=== PATIENT | female | born 1945 | race Caucasian/White ===

== ENCOUNTER → 2016-08-24 | Outpatient (CLI) | payer MEDICARE, BC | END | disposition home or self-care (01) | LOC: LABWHC1 10:18 | PROVIDERS: ATTEND Dermatology MOHS-Micrographic Surgery | DX: L64.8 Other androgenic alopecia (principal) | CPT/HCPCS: 36415; 84132 ==

== ENCOUNTER → 2016-11-22 | Outpatient (CLI) | payer MEDICARE, BC ==
--- NOTE | 2016-11-22 14:40 | MM ---
Reason for exam: screening (asymptomatic). Last mammogram was performed 6 months ago. History: Patient is postmenopausal. Family history of breast cancer in mother at age 65. Benign MG stereo VAD BX LT of the left breast, December 04, 2015. Benign excisional biopsy of the left breast, 1989. Physical Findings: A clinical breast exam by your physician is recommended on an annual basis and results should be correlated with mammographic findings. MG 3D Screening Mammo W/Cad Bilateral CC and MLO view(s) were taken. Prior study comparison: September 08, 2015, bilateral MG 3d screening mammo w/cad. The breast tissue is heterogeneously dense. This may lower the sensitivity of mammography. Finding: There are typically benign vascular calcifications in both breasts. Increasing group of indeterminate calcifications in the right breast near nodule. Previous mammotome biopsy in the in the left breast. There is a chronic nodularity in the right breast ASSESSMENT: Incomplete: need additional imaging evaluation, BI-RAD 0 RECOMMENDATION: Special view mammogram of the right breast. [facility] will attempt to contact patient to return for supplemental views.
--- NOTE | 2016-11-22 21:03 | WWHP ---
DATE OF DICTATION: 11/22/2016 CHIEF COMPLAINT: The patient is here for her routine gynecologic exam and mammogram. HISTORY OF PRESENT ILLNESS: This is a 71-year-old G2, P2 with an LMP of 1998. The patient is without gynecologic complaints. She denies any problems from her known rectocele. She did have a breast biopsy last year and had a follow-up mammogram on the left side in 05/29. PAST MEDICAL HISTORY: 1. Osteopenia, status post more than 5 years of Fosamax in the past. 2. Sinus problems. 3. Hypothyroidism following radioactive iodine treatment. 4. Elevated cholesterol. 5. TIA in the past. MEDICATIONS: 1. Singulair 10 mg daily p.r.n. 2. Hanh generic 180 mg daily p.r.n. 3. Synthroid 112 mcg daily. 4. Spironolactone 25 mg daily. 5. Crestor 5 mg every other day. 6. Aspirin 325 mg daily. ALLERGIES: NO KNOWN DRUG ALLERGIES. PAST SURGICAL HISTORY: Colonoscopy 2016 in addition to the surgeries listed in the 2016 H&P. 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 SOCIAL HISTORY: She denies tobacco and drug use and has about 2 alcoholic drinks per month. She has been since 1964 and is retired. She goes to [place] every winter. REVIEW OF SYSTEMS: She has lost about 7 pounds over the last year. She denies respiratory, cardiac or GI problems. She denies maltreatment and falling. : She has occasional slight urinary leakage and does wear a pad because of this. This is not a very big problem for her. PHYSICAL EXAM: Blood pressure 123/67. Height 5 feet 2 inches. Weight 148 pounds. Temperature 98.0, pulse 90. This is a well-developed, well-nourished white female who is alert and oriented x3, in no acute distress. HEENT is within normal limits. NECK: Supple without mass or thyromegaly. CHEST AND LUNGS: Clear to auscultation. HEART: Regular rate and rhythm. Breasts are without mass or discharge. Axillary exam is negative for adenopathy. BACK: Negative for CVA tenderness. ABDOMEN: Soft, nontender, without palpable masses. PELVIC EXAM: External genitalia reveal moderate atrophy without lesions. Cervix and vagina reveal a grade 2 rectocele and a grade 1 cystocele which are stable from her previous exam. The uterus is midposition, nongravid size and nontender. There are no palpable adnexal masses or tenderness. Rectovaginal exam is negative for mass or tenderness but does confirm a small rectocele, as above. There is no evidence of enterocele. There are external hemorrhoids which are not inflamed. Stool is negative for occult blood. EXTREMITIES: Nontender. IMPRESSION: A 71-year-old menopausal female with stable grade 2 rectocele and grade 1 cystocele. PLAN: 1. Pap smear was deferred, since she had a normal one last year. 2. Self breast examination was discussed. 3. Mammogram will be done today. 4. Osteoporosis prevention was discussed. We will plan on repeating a bone density test next year, since it was recently done through Dr. Betancur last year. She states she would like to have these done at [facility]. 5. She will return in one year. RY
== END | disposition home or self-care (01) ==
LOC: WWCWWP 09:15
PROVIDERS: ATTEND Obstetrics & Gynecology
DX: Z12.31 Encounter for screening mammogram for malignant neoplasm of breast (principal); R92.8 Other abnormal and inconclusive findings on diagnostic imaging of breast
CPT/HCPCS: 77063; G0202

== ENCOUNTER → 2016-12-05 | Outpatient (CLI) | payer MEDICARE, BC ==
--- NOTE | 2016-12-05 14:16 | MM ---
Reason for exam: additional evaluation requested from abnormal screening. Last mammogram was performed less than 1 month ago. History: Patient is postmenopausal. Family history of breast cancer in mother at age 65. Benign MG stereo VAD BX LT of the left breast, December 04, 2015. Benign excisional biopsy of the left breast, 1989. Physical Findings: Nurse did not find any significant physical abnormalities on exam. MG 3D Work Up W/Cad RT CC with magnification, LM with magnification, and LM view(s) were taken of the right breast. Prior study comparison: November 22, 2016, bilateral MG 3d screening mammo w/cad. June 06, 2016, left breast MG 3d diag mammo w/cad LT. September 09, 2015, left breast MG work up mamm w CAD LT. Finding: There are intermediate concern, suspicious coarse heterogeneous, grouped/clustered calcifications in the anterior position of the right breast. These results were verbally communicated with the patient and result sheet given to the patient on 12/05/16. ASSESSMENT: Suspicious, BI-RAD 4 RECOMMENDATION: Stereotactic core biopsy of the right breast. Called Dr. Macdonald with mammographic findings and has scheduled an appointment for the patient for 12/29/16 at 10:[address] Aj. Biopsy scheduled for 12/12/16 at 8 o'clock. PRELIMINARY REPORT CALLED AND FAXED TO DR. AJ ON 12/05/16 AT 300/TP.
== END | disposition home or self-care (01) ==
LOC: RADMAMWWP 12:53
PROVIDERS: ATTEND Obstetrics & Gynecology
DX: R92.8 Other abnormal and inconclusive findings on diagnostic imaging of breast (principal)
CPT/HCPCS: G0206; G0279

== ENCOUNTER → 2016-12-12 | Day surgery (SDC) | payer MEDICARE, BC ==
[~2016-12-12] MED LIST: ALPRAZolam 0.25 MG TAB ONE; BACITRACIN OINT 1 EACH PACKET TOPICAL ONE; LIDOCAINE 1% INJ 10MG/ML (20 ML MDV) ONE; SODIUM BICARB 4% 5 ML VIAL (0.48 MEQ/ML) ONE
--- NOTE | 2016-12-12 11:22 | MM ---
Stereotactic Mammotome core biopsy right breast. HISTORY: Right breast microcalcifications The microcalcifications in question within the right breast were targeted by the undersigned. Procedure was performed by the undersigned. Informed consent was obtained and all of the patients questions were answered. The standard sterile technique was utilized and appropriate local anesthesia was obtained with 1% licocaine. Mammotome probe was advanced and multiple core samples were obtained and sent to pathology for interpretation. Microclip marker was deployed at the site of biopsy. Post procedural mammogram demonstrates appropriate deployment of radiopaque clip marker. The patient tolerated the procedure well and left the department in stable condition. Pathology results are pending. IMPRESSION: Successful stereotactic core biopsy right breast with pathology results pending. Pathology Results: Benign BREAST, RIGHT, STEREOTACTIC CORE BIOPSY: FIBROADIPOSE TISSUE WITH FAT NECROSIS, FIBROSIS, LYMPHOHISTIOCYTIC INFLAMMATION, AND CALCIFICATIONS. PENDING DEEPER SECTIONS. ADDENDUM REPORT Multiple additional levels performed on the specimen demonstrate an additional focus of calcifications in one of the core with associated fat necrosis and lymphohistiocytic inflammation. The diagnosis is unchanged. Recommendation Follow up mammogram of the right breast in 6 months. RY
== END ==
LOC: RADMAMWWP 07:03
PROVIDERS: ATTEND Surgery
DX: N64.1 Fat necrosis of breast (principal); N60.31 Fibrosclerosis of right breast; R92.8 Other abnormal and inconclusive findings on diagnostic imaging of breast; N64.89 Other specified disorders of breast
CPT/HCPCS: 88305; 19081; A4648; J2001

== ENCOUNTER → 2016-12-13 | Outpatient (CLI) | payer MEDICARE, BC | LOC: LABWHC1 15:54 | PROVIDERS: ATTEND Dermatology MOHS-Micrographic Surgery | DX: L64.8 Other androgenic alopecia (principal) | CPT/HCPCS: 36415; 84132 ==

== ENCOUNTER → 2017-12-27 | Outpatient (CLI) | payer MEDICARE, BC ==
[2017-12-27 10:26] VITALS: BP 115/61; PULSE 85; RESP 16; TEMP 96.1; BMI 26.9
--- NOTE | 2017-12-27 11:19 | P.HPOB ---
History of Present Illness H&P Date: 12/27/17 Chief Complaint: The patient is here for her routine gynecologic exam and mammogram. This is a 72 year old with an LMP of 1998. The patient is without gynecologic complaints. She denies any postmenopausal bleeding. She denies any problems with her rectocele or cystocele. She did have a right breast biopsy last year which was benign. Her follow-up right mammogram on 06/15/17 was benign and bilateral screening mammogram was recommended. Review of Systems Weight has been stable. She denies respiratory or cardiac problems. G.I.: she has occasional gastric reflux. She denies maltreatment or problems with falling. : she does have to get up to urinate at night when she drinks water in the evening. She does have occasional urinary leakage which requires a pad. Past Medical History Past Medical History: CVA/TIA (TIA), Hyperlipidemia, Thyroid Disorder ( Hypothyroid post radioactive iodine treatment) Additional Past Medical History / Comment(s): Sinus problems. Osteopenia status post more than 5 years use of Fosamax in the past. 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 Past Surgical History: Breast Surgery (Multiple breast biopsies), Tonsillectomy , Tubal Ligation Additional Past Surgical History / Comment(s): Colonoscopies times 4 and the most recent was in 2016. Past Psychological History: No Psychological Hx Reported Smoking Status: Never smoker Past Alcohol Use History: Occasional (2-4 per week) Past Drug Use History: None Reported Additional History: She has been since 1964. Her has had a CVA. She is retired. - Past Family History Mother Family Medical History: Cancer (Breast) Additional Family Medical History / Comment(s): Mother had celiac sprue disease. Father Family Medical History: COPD (Emphysema) Medications and Allergies Home Medications Medication Instructions Recorded Confirmed Type Levothyroxine Sodium [Synthroid] 112 mcg PO DAILY 12/27/17 12/27/17 History Montelukast Sodium [Singulair] 10 mg PO HS 12/27/17 12/27/17 History Rosuvastatin [Crestor] 12/27/17 History Allergies Allergy/AdvReac Type Severity Reaction Status Date / Time No Known Allergies Allergy Verified 12/27/17 11:11 Exam - Vital Signs Vital signs: Vital Signs Temp Pulse Resp BP 12/27/17 10:15 96.1 F L 85 16 115/61 Intake and Output 12/26/17 12/27/17 12/27/17 22:59 06:59 14:59 Other: Weight 66.678 kg Height 5'2", BMI 26.9. This is a well-developed well-nourished white female who is alert and oriented times 3 in no acute distress. HEENT: Within normal limits. NECK: Supple without mass or thyromegaly. CHEST AND LUNGS: Clear to auscultation. HEART: Regular rate and rhythm. BREASTS: Are without mass or discharge. AXILLARY EXAM: Negative for adenopathy. BACK: Negative for CVA tenderness. ABDOMEN: Soft, nontender, without palpable masses. PELVIC EXAM: Normal external genitalia with moderate atrophy. Cervix and vagina appear normal with moderate atrophy. There is no unusual discharge. There is a grade 2 rectocele and grade 1 cystocele which is stable from her previous exam. There is no significant change with cough or Valsalva. The uterus is midposition, nongravid size and nontender. There are no palpable adnexal masses or tenderness. RECTAL EXAM: rectovaginal exam is negative for mass or tenderness and is negative for occult blood. This does confirm a small rectocele. EXTREMITIES: Nontender. IMPRESSION: 1. 72-year-old menopausal female with stable grade 2 rectocele and grade 1 cystocele. Otherwise unremarkable gynecologic exam. 2. History of osteopenia status post 5 years use of Fosamax in the past. PLAN: 1. Pap smear was performed. 2. Self breast awareness was discussed. 3. Screening mammogram will be done today. 4. Osteoporosis prevention was discussed. She states she had a bone density test done in the fall of [address] Betancur. 5. She does receive flu shots in the fall. 6. She will return in one year.
--- NOTE | 2017-12-28 10:54 | MM ---
Reason for exam: screening (asymptomatic). Last mammogram was performed 6 months ago. History: Patient is postmenopausal. Family history of breast cancer in mother at age 65. Benign MG stereo VAD BX RT of the right breast, December 12, 2016. Benign MG stereo VAD BX LT of the left breast, December 04, 2015. Benign excisional biopsy of the left breast, 1989. Physical Findings: A clinical breast exam by your physician is recommended on an annual basis and results should be correlated with mammographic findings. MG 3D Screening Mammo W/Cad Bilateral CC and MLO view(s) were taken. Prior study comparison: June 15, 2017, right breast MG 3d diag mammo w/cad RT. December 05, 2016, right breast MG 3d work up w/cad RT. There are scattered fibroglandular densities. Finding #1: There is a stable architectural distortion in the central position of the left breast. Clip correlates with excision biopsy. Finding #2: There are typically benign vascular calcifications in the right breast. Finding #3: There are typically benign round, grouped/clustered calcifications in the left breast. Previous mammotome biopsy in the right and left breast. There is no discrete abnormality. ASSESSMENT: Benign, BI-RAD 2 RECOMMENDATION: Routine screening mammogram of both breasts in 1 year.
== END | disposition home or self-care (01) ==
LOC: WWCWWP 09:43
PROVIDERS: ATTEND Obstetrics & Gynecology
DX: Z12.31 Encounter for screening mammogram for malignant neoplasm of breast (principal)
CPT/HCPCS: 77063; 77067

== ENCOUNTER → 2018-01-11 | Outpatient (CLI) | payer MEDICARE, BC ==
[2018-01-11 11:13] LABS: Potassium 4.4 mmol/L (3.5-5.1)
== END | disposition home or self-care (01) ==
LOC: LABWHC1 09:45
PROVIDERS: ATTEND Dermatology Procedural Dermatology
DX: L64.8 Other androgenic alopecia (principal)
CPT/HCPCS: 36415; 82565; 84132; 84520

== ENCOUNTER → 2018-04-20 | Outpatient (CLI) | payer MEDICARE, BC ==
[2018-04-20 15:20] LABS: Potassium 4.4 mmol/L (3.5-5.1)
== END | disposition home or self-care (01) ==
LOC: LABWHC1 14:50
PROVIDERS: ATTEND Dermatology Procedural Dermatology
DX: L64.8 Other androgenic alopecia (principal)
CPT/HCPCS: 36415; 82565; 84132; 84520

== ENCOUNTER → 2018-06-12 | Outpatient (CLI) | payer MEDICARE, BC ==
[2018-06-12 16:18] LABS: Potassium 4.4 mmol/L (3.5-5.5)
== END | disposition home or self-care (01) ==
LOC: LABWHC1 07:21
PROVIDERS: ATTEND Nurse Practitioner Family
DX: L64.8 Other androgenic alopecia (principal)
CPT/HCPCS: 36415; 82565; 84132; 84520

== ENCOUNTER → 2019-02-12 | Outpatient (CLI) | payer MEDICARE, BC ==
[2019-02-12 15:15] VITALS: BP 116/78; PULSE 82; RESP 16; TEMP 98; BMI 26.5
--- NOTE | 2019-02-12 16:09 | P.HPOB ---
History of Present Illness H&P Date: 02/12/19 Chief Complaint: The patient is here for her routine gynecologic exam and ma mmogram. This is a 73-year-old with an LMP of 1998. The patient states she has had occasional episodes of urinary leakage if she cannot get to the bathroom right away. She states that is rarely associated with coughing or sneezing. She is otherwise without gynecologic complaints. Review of Systems Weight has been stable. She denies respiratory, cardiac and G.I. problems. She denies maltreatment or problems with falling. : occasional urge incontinence as in the HPI. Past Medical History Past Medical History: CVA/TIA, Hyperlipidemia, Thyroid Disorder Additional Past Medical History / Comment(s): Hypothyroidism status post radioactive iodine treatment. TIA. Sinus problems. Osteopenia status post more than 5 years use of Fosamax in the past. 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 History of Any Multi-Drug Resistant Organisms: None Reported Past Surgical History: Breast Surgery, Tonsillectomy, Tubal Ligation Additional Past Surgical History / Comment(s): Colonoscopies times 4 and the most recent was in 2015. Past Psychological History: No Psychological Hx Reported Smoking Status: Never smoker Past Alcohol Use History: Occasional (2 per week) Past Drug Use History: None Reported Additional History: She has been since 1965 and is not sexually active. Her has had a CVA. She is retired. - Past Family History Mother Family Medical History: Cancer Additional Family Medical History / Comment(s): Mother had celiac sprue disease and breast cancer. Father Family Medical History: COPD Additional Family Medical History / Comment(s): Emphysema. Medications and Allergies Home Medications Medication Instructions Recorded Confirmed Type Levothyroxine Sodium [Synthroid] 112 mcg PO DAILY 12/27/17 12/27/17 History Montelukast Sodium [Singulair] 10 mg PO HS 12/27/17 12/27/17 History Rosuvastatin [Crestor] 10 mg PO 12/27/17 History Biotin 5 mg PO 02/12/19 History Calcium Carbonate [Calcium] 600 mg PO 02/12/19 History Cranberry Fruit Extract [Cranberry] 200 mg PO 02/12/19 History Multivitamin [Multivitamins Adult 1 each PO 02/12/19 History Gummies] Ranitidine HCl [Zantac] 75 mg PO HS 02/12/19 02/12/19 History Spironolactone 100 mg PO 02/12/19 History Allergies Allergy/AdvReac Type Severity Reaction Status Date / Time No Known Allergies Allergy Verified 02/12/19 15:16 Exam Vital Signs Temp Pulse Resp BP Pulse Ox 02/12/19 15:10 98.0 F 82 16 116/78 95 Intake and Output 02/12/19 02/12/19 02/12/19 06:59 14:59 22:59 Other: Weight 65.771 kg Height 5'2", weight 145 pounds, BMI 26.5. This is a well-developed well-nourished white female who is alert and oriented times 3 in no acute distress. HEENT: Within normal limits. NECK: Supple without mass or thyromegaly. CHEST AND LUNGS: Clear to auscultation. HEART: Regular rate and rhythm. BREASTS: Are without mass or discharge. AXILLARY EXAM: Negative for adenopathy. BACK: Negative for CVA tenderness. ABDOMEN: Soft, nontender, without palpable masses. PELVIC EXAM: Normal external genitalia with mild to moderate atrophy. Cervix and vagina appear normal with mild to moderate atrophy. There is no unusual discharge. There is a grade 1 to 2 cystocele. There is minimal urethral mobility with cough and Valsalva. No urinary leakage was demonstrated. There is a grade 2 rectocele. The uterus is midposition, nongravid size and nontender. There are no palpable adnexal masses or tenderness. RECTAL EXAM: rectal vaginal exam is negative for mass or tenderness and is negative for occult blood. EXTREMITIES: Nontender. IMPRESSION: 1. 73-year-old menopausal female with stable grade 2 rectocele and grade 1 to 2 cystocele. Gynecologic exam was otherwise unremarkable. 2. Mild urge incontinence. 3. History of osteopenia status post 5 years use of Fosamax in the past. PLAN: 1. Pap smears have been discontinued. She has had no history of cervical problems and she has had adequate screening. 2. Self breast awareness was discussed with the patient. 3. Screening mammogram will be done today. 4. She will do regular [place] exercises and timed voids. She will call if she is having greater problems with urinary incontinence. 5. She does get flu shots in the fall. 6.She was advised to return in one year for her annual well woman exam.
--- NOTE | 2019-02-13 10:04 | MM ---
Reason for exam: screening (asymptomatic). Last mammogram was performed 1 year and 2 months ago. History: Patient is postmenopausal. Family history of breast cancer in mother at age 65. Benign MG stereo VAD BX RT of the right breast, December 12, 2016. Benign MG stereo VAD BX LT of the left breast, December 04, 2015. Benign excisional biopsy of the left breast, 1989. Physical Findings: A clinical breast exam by your physician is recommended on an annual basis and results should be correlated with mammographic findings. MG 3D Screening Mammo W/Cad Bilateral CC and MLO view(s) were taken. Prior study comparison: December 27, 2017, bilateral MG 3d screening mammo w/cad. June 15, 2017, right breast MG 3d diag mammo w/cad RT. The breast tissue is heterogeneously dense. This may lower the sensitivity of mammography. Stable benign calcifications. There is no discrete abnormality. No significant changes when compared with prior studies. ASSESSMENT: Benign, BI-RAD 2 RECOMMENDATION: Routine screening mammogram of both breasts in 1 year.
== END ==
LOC: WWCWWP 15:02
PROVIDERS: ATTEND Obstetrics & Gynecology
DX: Z12.31 Encounter for screening mammogram for malignant neoplasm of breast (principal)
CPT/HCPCS: 77063; 77067

== ENCOUNTER → 2019-05-16 | Outpatient (CLI) | payer MEDICARE, BC | END | disposition home or self-care (01) | LOC: LABWHC1 13:26 | PROVIDERS: ATTEND Nurse Practitioner Family | DX: L64.8 Other androgenic alopecia (principal); L82.1 Other seborrheic keratosis | CPT/HCPCS: 36415; 84132 ==

== ENCOUNTER → 2020-02-25 | Outpatient (CLI) | payer MEDICARE, BC ==
[2020-02-25 14:11] VITALS: BP 110/51; PULSE 81; RESP 18; TEMP 97.9
--- NOTE | 2020-02-25 14:52 | P.HPOB ---
History of Present Illness H&P Date: 02/25/20 Chief Complaint: The patient is here for her routine gynecologic exam and ma mmogram. This is a 74-year-old with an LMP of 1998. The patient is without gynecologic complaints. Review of Systems She has lost about 17 pounds with dietary changes and increased activity. She denies respiratory, cardiac and G.I. problems. She denies maltreatment or problems with falling. : She does have occasional leakage but is able to control it. Past Medical History Past Medical History: CVA/TIA, Hyperlipidemia, Thyroid Disorder Additional Past Medical History / Comment(s): Hypothyroidism status post radioactive iodine treatment. TIA. Sinus problems. Osteopenia status post more than 5 years use of Fosamax in the past. 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 History of Any Multi-Drug Resistant Organisms: None Reported Past Surgical History: Breast Surgery, Tonsillectomy, Tubal Ligation Additional Past Surgical History / Comment(s): Colonoscopies times 4 and the most recent was in 2015. Past Psychological History: No Psychological Hx Reported Smoking Status: Never smoker Past Alcohol Use History: Rare (4 per year) Past Drug Use History: None Reported Additional History: The patient has been since 1964 and is not sexually active. Her had a CVA. She is retired. - Past Family History Mother Family Medical History: Cancer Additional Family Medical History / Comment(s): Mother had celiac sprue disease and breast cancer. Father Family Medical History: COPD Additional Family Medical History / Comment(s): Emphysema. Medications and Allergies Home Medications Medication Instructions Recorded Confirmed Type Levothyroxine Sodium [Synthroid] 112 mcg PO DAILY 12/27/17 02/25/20 History Montelukast Sodium [Singulair] 10 mg PO HS 12/27/17 02/25/20 History Rosuvastatin [Crestor] 10 mg PO DAILY 12/27/17 02/25/20 History Biotin 5 mg PO DAILY 02/12/19 02/25/20 History Calcium Carbonate [Calcium] 600 mg PO DAILY 02/12/19 02/25/20 History Cranberry Fruit Extract [Cranberry] 200 mg PO DAILY 02/12/19 02/25/20 History Multivitamin [Multivitamins Adult 1 each PO DAILY 02/12/19 02/25/20 History Gummies] Ranitidine HCl [Zantac] 75 mg PO HS 02/12/19 02/25/20 History Spironolactone 100 mg PO DAILY 02/12/19 02/25/20 History Allergies Allergy/AdvReac Type Severity Reaction Status Date / Time No Known Allergies Allergy Verified 02/25/20 14:01 Exam Vital Signs Temp Pulse Resp BP Pulse Ox 02/25/20 14:07 97.9 F 81 18 110/51 99 Intake and Output 02/24/20 02/25/20 02/25/20 22:59 06:59 14:59 Other: Weight 58.06 kg Height 5 feet 1-1/2 inches, weight 128 pounds. BMI 23.8. This is a well-developed well-nourished white female who is alert and oriented times 3 in no acute distress. HEENT: Within normal limits. NECK: Supple without mass or thyromegaly. CHEST AND LUNGS: Clear to auscultation. HEART: Regular rate and rhythm. BREASTS: Are without mass or discharge. AXILLARY EXAM: Negative for adenopathy. BACK: Negative for CVA tenderness. ABDOMEN: Soft, nontender, without palpable masses. PELVIC EXAM: Normal external genitalia with mild to moderate atrophy. Cervix and vagina appear normal mild to moderate atrophy. There is no unusual discharge. There is a grade 2 rectocele and grade 1 cystocele with minimal change upon Valsalva. This is stable from her previous examination.. The uterus is midposition, nongravid size and nontender. There are no palpable adnexal masses or tenderness. RECTAL EXAM: Rectovaginal exam is negative for mass or tenderness and is negative for occult blood. EXTREMITIES: Nontender. IMPRESSION: 1. 74-year-old menopausal female with stable grade 2 rectocele and grade 1 cystocele. 2. History of osteopenia status post 5 years use of Fosamax in the past. PLAN: 1. Pap smears have been discontinued. 2. Self breast awareness was discussed with the patient. 3. Screening mammogram will be done today. 4. Osteoporosis prevention was discussed. I have stressed the importance of adequate calcium, vitamin D and regular exercise. Recommended amounts of calcium and vitamin D were also discussed. She will see when her next bone density test is due when she sees Dr. Betancur she has been having these done through him. 5. She does get flu shots in the fall. 6. The patient was advised to return in 1-2 years for her well woman examination.
--- NOTE | 2020-02-26 14:52 | MM ---
Reason for exam: screening (asymptomatic). Last mammogram was performed 1 year ago. History: Patient is postmenopausal. Family history of breast cancer in mother at age 65. Benign MG stereo VAD BX RT of the right breast, December 12, 2016. Benign MG stereo VAD BX LT of the left breast, December 04, 2015. Benign excisional biopsy of the left breast, 1989. Physical Findings: A clinical breast exam by your physician is recommended on an annual basis and results should be correlated with mammographic findings. MG 3D Screening Mammo W/Cad Bilateral CC and MLO view(s) were taken. Prior study comparison: February 12, 2019, bilateral MG 3d screening mammo w/cad. December 27, 2017, bilateral MG 3d screening mammo w/cad. There are scattered fibroglandular densities. No significant changes when compared with prior studies. ASSESSMENT: Benign, BI-RAD 2 RECOMMENDATION: Routine screening mammogram of both breasts in 1 year.
== END | disposition home or self-care (01) ==
LOC: WWCWWP 13:50
PROVIDERS: ATTEND Obstetrics & Gynecology
DX: Z12.31 Encounter for screening mammogram for malignant neoplasm of breast (principal)
CPT/HCPCS: 77063; 77067

== ENCOUNTER → 2020-05-25 | Outpatient (CLI) | payer MEDICARE, BC ==
[2020-05-25 20:55] LABS: African American GFR (CKD) 71.5 (60.0-200.0); Non-African American GFR(CKD) 61.7 (60.0-200.0)
== END | disposition home or self-care (01) ==
LOC: LABWHC1 11:58
PROVIDERS: ATTEND Nurse Practitioner Family
DX: L64.8 Other androgenic alopecia (principal)
CPT/HCPCS: 36415; 82565; 84132; 84520

== ENCOUNTER → 2021-03-03 | Outpatient (CLI) | payer MEDICARE, BC ==
[2021-03-03 10:43] VITALS: BP 110/69; PULSE 99; RESP 14; TEMP 98.2
--- NOTE | 2021-03-03 11:24 | P.HPOB ---
History of Present Illness H&P Date: 03/03/21 Chief Complaint: The patient is here for her routine gynecologic exam and ma mmogram. This is a 75-year-old with an LMP of 1998. The patient is without gynecologic complaints and denies any postmenopausal bleeding. Review of Systems Weight has been stable. She denies respiratory, cardiac and G.I. problems. She denies maltreatment or problems with falling. : She does have occasional urinary leakage if she waits too long. She does wear a pad for this and this is not a major problem for her. Past Medical History Past Medical History: CVA/TIA, Hyperlipidemia, Thyroid Disorder Additional Past Medical History / Comment(s): Hypothyroidism status post radioactive iodine treatment. TIA. Sinus problems. Osteopenia status post more than 5 years use of Fosamax in the past. 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 History of Any Multi-Drug Resistant Organisms: None Reported Past Surgical History: Breast Surgery, Tonsillectomy, Tubal Ligation Additional Past Surgical History / Comment(s): Colonoscopies times 4 and the most recent was in 2015. Past Psychological History: No Psychological Hx Reported Smoking Status: Never smoker Past Alcohol Use History: Rare (4 per year) Past Drug Use History: None Reported Additional History: The patient has been since 1964 and is not sexually active. Her is status post CVA which limits his activity. She is retired. - Past Family History Mother Family Medical History: Cancer Additional Family Medical History / Comment(s): Mother had celiac sprue disease and breast cancer. Father Family Medical History: COPD Additional Family Medical History / Comment(s): Emphysema. Medications and Allergies Home Medications Medication Instructions Recorded Confirmed Type Levothyroxine Sodium [Synthroid] 85 mcg PO QAM 12/27/17 03/03/21 History Montelukast Sodium [Singulair] 10 mg PO HS 12/27/17 03/03/21 History Rosuvastatin [Crestor] 10 mg PO HS 12/27/17 03/03/21 History Biotin 5 mg PO DAILY 02/12/19 03/03/21 History Calcium Carbonate [Calcium] 600 mg PO DAILY 02/12/19 03/03/21 History Cranberry Fruit Extract [Cranberry] 200 mg PO HS 02/12/19 03/03/21 History Multivitamin [Multivitamins Adult 1 each PO DAILY 02/12/19 03/03/21 History Gummies] Spironolactone 100 mg PO DAILY 02/12/19 03/03/21 History raNITIdine HCL [Zantac] 75 mg PO QAM 02/12/19 03/03/21 History Aspirin 325 mg PO HS 03/03/21 03/03/21 History Fexofenadine HCl [Hanh Allergy] 60 mg PO DAILY 03/03/21 03/03/21 History Allergies Allergy/AdvReac Type Severity Reaction Status Date / Time No Known Allergies Allergy Verified 03/03/21 10:30 Exam Vital Signs Temp Pulse Resp BP Pulse Ox 03/03/21 10:37 98.2 F 99 14 110/69 99 Intake and Output 03/02/21 03/03/21 03/03/21 22:59 06:59 14:59 Other: Weight 58.06 kg Height 5 feet 2 inches, weight 128 pounds, BMI 23.4. This is a well-developed well-nourished white female who is alert and oriented times 3 in no acute distress. HEENT: Within normal limits. NECK: Supple without mass or thyromegaly. CHEST AND LUNGS: Clear to auscultation. HEART: Regular rate and rhythm. BREASTS: Are without mass or discharge. AXILLARY EXAM: Negative for adenopathy. BACK: Negative for CVA tenderness. ABDOMEN: Soft, nontender, without palpable masses. PELVIC EXAM: Normal external genitalia with moderate atrophy. Cervix and vagina appear normal with mild to moderate atrophy. There is no unusual discharge. There is a grade 2 rectocele and a grade 1 cystocele noted which is stable from her previous exams. The uterus is midposition, nongravid size and nontender. There are no palpable adnexal masses or tenderness. RECTAL EXAM: Rectovaginal exam is negative for mass or tenderness and is negative for occult blood. Rectal exam does confirm the grade 2 rectocele. EXTREMITIES: Nontender. IMPRESSION: 1. 75-year-old menopausal female with a stable grade 2 rectocele and grade 1 cystocele. 2. History of osteopenia status post 5 years use of Fosamax in the past. PLAN: 1. Pap smears have been discontinued. 2. Self breast awareness was discussed with the patient. 3. Screening mammogram will be done today. 4. Osteoporosis prevention was discussed. I have stressed the importance of adequate calcium, vitamin D and regular exercise. Recommended amounts of calcium and vitamin D were also discussed. She has done bone density testing through her PCP and she has been told that she will be due for bone density testing next year. She would like to do it at the same time as her yearly well woman examination and yearly mammogram. 5. She has completed her Covid vaccination series and did receive her flu shot last fall. 6. Her last colonoscopy was about 5 years ago and she will discuss colorectal cancer screening with her PCP to see if she is due for another colonoscopy. 7. She was advised to return in one year for her annual well woman exam.
--- NOTE | 2021-03-04 10:01 | MM ---
Reason for exam: screening (asymptomatic). Last mammogram was performed 1 year ago. History: Patient is postmenopausal. Family history of breast cancer in mother at age 65. Benign MG stereo VAD BX RT of the right breast, December 12, 2016. Benign MG stereo VAD BX LT of the left breast, December 04, 2015. Benign excisional biopsy of the left breast, 1989. Physical Findings: A clinical breast exam by your physician is recommended on an annual basis and results should be correlated with mammographic findings. MG 3D Screening Mammo W/Cad Bilateral CC and MLO view(s) were taken. Prior study comparison: February 25, 2020, bilateral MG 3d screening mammo w/cad. February 12, 2019, bilateral MG 3d screening mammo w/cad. There are scattered fibroglandular densities. Stable benign calcifications. There is no discrete abnormality. No significant changes when compared with prior studies. ASSESSMENT: Benign, BI-RAD 2 RECOMMENDATION: Routine screening mammogram of both breasts in 1 year.
== END ==
LOC: WWCWWP 10:20
PROVIDERS: ATTEND Obstetrics & Gynecology
DX: Z12.31 Encounter for screening mammogram for malignant neoplasm of breast (principal); Z01.419 Encounter for gynecological examination (general) (routine) without abnormal findings; N81.10 Cystocele, unspecified; N81.6 Rectocele; E03.9 Hypothyroidism, unspecified; Z86.73 Personal history of transient ischemic attack (TIA), and cerebral infarction without residual deficits; E78.5 Hyperlipidemia, unspecified; Z79.82 Long term (current) use of aspirin; Z79.899 Other long term (current) drug therapy; Z80.3 Family history of malignant neoplasm of breast; Z87.39 Personal history of other diseases of the musculoskeletal system and connective tissue
CPT/HCPCS: 77063; 77067

== ENCOUNTER → 2021-06-04 | Outpatient (CLI) | payer MEDICARE, BC ==
[2021-06-04 20:27] LABS: African American GFR (CKD) 64.5 (60.0-200.0); Blood Urea Nitrogen 20.9 mg/dL (9.0-27.0); Non-African American GFR(CKD) 55.7 (60.0-200.0)
== END | disposition home or self-care (01) ==
LOC: LABWHC1 11:05
PROVIDERS: ATTEND Nurse Practitioner Family
DX: L64.8 Other androgenic alopecia (principal)
CPT/HCPCS: 36415; 82565; 84132; 84520

== ENCOUNTER → 2022-03-23 | Outpatient (CLI) | payer MEDICARE, BC ==
[2022-03-23 10:42] VITALS: BP 105/65; PULSE 78; RESP 17; TEMP 98.3
--- NOTE | 2022-03-23 11:43 | P.HPOB ---
History of Present Illness H&P Date: 03/23/22 Chief Complaint: The patient is here for her routine gynecologic exam and ma mmogram. This is a 76-year-old with an LMP of 1998. The patient is without gynecologic complaints and denies any postmenopausal bleeding. Review of Systems The patient has gained 3 pounds over the last year. She denies respiratory, cardiac, or G.I. problems. Past Medical History Past Medical History: CVA/TIA, Hyperlipidemia, Thyroid Disorder Additional Past Medical History / Comment(s): Hypothyroidism status post radioactive iodine treatment. TIA. Sinus problems. Osteopenia status post more than 5 years use of Fosamax in the past. 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 History of Any Multi-Drug Resistant Organisms: None Reported Past Surgical History: Breast Surgery, Tonsillectomy, Tubal Ligation Additional Past Surgical History / Comment(s): Colonoscopies-last 2021. Past Psychological History: No Psychological Hx Reported Smoking Status: Never smoker Past Alcohol Use History: Rare (5 per year) Past Drug Use History: None Reported Additional History: She has been since 1964 and is not sexually active. Her is status post CVA which limits his activity. She is retired. - Past Family History Mother Family Medical History: Cancer Additional Family Medical History / Comment(s): Mother had celiac sprue disease and breast cancer. Father Family Medical History: COPD Additional Family Medical History / Comment(s): Emphysema. Medications and Allergies Home Medications Medication Instructions Recorded Confirmed Type Levothyroxine Sodium [Synthroid] 85 mcg PO QAM 12/27/17 03/23/22 History Montelukast Sodium [Singulair] 10 mg PO HS 12/27/17 03/23/22 History Rosuvastatin [Crestor] 10 mg PO HS 12/27/17 03/23/22 History Biotin 5 mg PO DAILY 02/12/19 03/23/22 History Cranberry Fruit Extract [Cranberry] 200 mg PO HS 02/12/19 03/23/22 History Multivitamin [Multivitamins Adult 1 each PO DAILY 02/12/19 03/23/22 History Gummies] Spironolactone 100 mg PO DAILY 02/12/19 03/23/22 History raNITIdine HCL [Zantac] 75 mg PO QAM 02/12/19 03/23/22 History Aspirin 325 mg PO HS 03/03/21 03/23/22 History Fexofenadine HCl [Hanh Allergy] 60 mg PO DAILY 03/03/21 03/23/22 History Allergies Allergy/AdvReac Type Severity Reaction Status Date / Time No Known Allergies Allergy Verified 03/23/22 10:38 Exam Vital Signs Temp Pulse Resp BP Pulse Ox 03/23/22 10:38 98.3 F 78 17 105/65 98 Intake and Output 03/22/22 03/23/22 03/23/22 22:59 06:59 14:59 Other: Weight 59.421 kg Height 5 feet 2 inches, weight 131 pounds, BMI 24.0. This is a well-developed well-nourished white female who is alert and oriented times 3 in no acute distress. HEENT: Within normal limits. NECK: Supple without mass or thyromegaly. CHEST AND LUNGS: Clear to auscultation. HEART: Regular rate and rhythm. BREASTS: Are without mass or discharge. AXILLARY EXAM: Negative for adenopathy. BACK: Negative for CVA tenderness. ABDOMEN: Soft, nontender, without palpable masses. PELVIC EXAM: Normal external genitalia with moderate atrophy. Cervix and vagina appear normal with moderate atrophy. There is no unusual discharge. There is a stable grade 2 rectocele and grade 1 cystocele. The uterus is midposition, nongravid size and nontender. There are no palpable adnexal masses or tenderness. RECTAL EXAM: Rectovaginal exam is negative for mass or tenderness and is negative for occult blood. EXTREMITIES: Nontender. IMPRESSION: 1. 76-year-old menopausal female with stable grade 2 rectocele and grade 1 cystocele which are asymptomatic. 2. History of osteopenia status post 5 years use of Fosamax in the past. PLAN: 1. Pap smears have been discontinued. 2. Self breast awareness was discussed with the patient. We have also discussed symptoms associated with inflammatory breast cancer. 3. Screening mammogram will be done today. 4. Osteoporosis prevention was discussed. Bone density testing will be done today. She has had bone density test done here in the past, but the most recent ones have been done in Dr. Betancur's office. 5. She has completed her Covid vaccination series but has not received boosters. She will consider booster vaccinations. 6. The patient was advised to return in 1-2 years for her well woman examination.
--- NOTE | 2022-03-23 17:38 | BD ---
EXAMINATION TYPE: Axial Bone Density DATE OF EXAM: 03/23/2022 COMPARISON: 08.05.2010 CLINICAL HISTORY: 76 years year old Female. ICD-10 CODE: Z78.0 POST MENOPAUSAL WITHOUT HRT Height: 60.5 Weight: 125 FRAX RISK QUESTIONS: History of Fracture in Adulthood: YES RISK FACTORS HISTORY OF: PATELLA FX TO LT KNEE, AN ADULT Postmenopausal woman: YES, AT 49 YRS OLD Hyperparathyroidism: NO Adrenal Insufficiency: NO MEDICATIONS: Thyroid Medications: YES, SYNTHROID PRODUCT SINCE AGE OF 38 Osteoporosis Medications: YES, IN THE PAST FOSAMAX FOR 5 YRS, NOTHING FOR 10 YRS Additional Medications: CHOLESTEROL MEDS, CRESTOR, BP MEDS,REFLUX MEDS, VIT D AND MULTIVITAMIN, BP ME DS Additional History: CHOLESTEROL, HYPERTENSION, THYROID, REFLUX, EXAM MEASUREMENTS: Bone mineral densitometry was performed using the [employer] System. Bone mineral density as measured about the Lumbar spine is: ----- L1-L4(G/cm2): 1.289 T Score Values are as follows: ----- L1: -0.1 ----- L2: 0.0 ----- L3: 1.1 ----- L4: 2.2 ----- L1-L4: 0.9 Bone mineral density has: Increased 7.2% since study of: 08.05.2010 Bone mineral density about the R hip (g/cm2): 0.775 Bone mineral density about the L hip (g/cm2): 0.802 T Score values are as follows: -----R Neck: -1.5 -----L Neck: -1.4 -----R Total: -1.9 -----L Total: -1.6 Bone mineral density has: REMAINED THE SAME 0.0% since study of: 08.05.2010 FRAX%s: The graph provided illustrates a 18.8% chance for a major osteoporotic fx and a 3.9% chance f or the hips probability for fx in 10 years time. IMPRESSION: Osteopenia (T Score between -2.5 and -1). There is slightly increased risk of fracture and the patient may be considered for treatment. Re-Screen 2-5 years. NOTE: T-SCORE=SD OF THE YOUNG ADULT MEAN.
--- NOTE | 2022-03-24 09:51 | MM ---
Reason for Exam: Screening (asymptomatic). Last mammogram was performed 1 year(s) and 1 month(s) ago. Patient History: Menarche at age 10. First Full-Term at age 21. Postmenopausal. Patient has history of breast feeding. 1989, Benign Excisional Biopsy on the left side. 12/12/2016, Benign Core Biopsy on the right side. 12/04/2015, Benign Core Biopsy on the left side. Mother had breast cancer, age 65. Risk Values: Britta 5 year model risk: 4.9%. NCI Lifetime model risk: 8.7%. Prior Study Comparison: 02/12/2019 Bilateral Screening Mammogram, [facility]. 02/25/2020 Bilateral Screening Mammogram, [facility]. 03/03/2021 Bilateral Screening Mammogram, [facility]. Tissue Density: There are scattered fibroglandular densities. Findings: Analyzed By CAD. There is no suspicious group of microcalcifications or new suspicious mass in either breast. Overall Assessment: Negative, BI-RAD 1 Management: Screening Mammogram of both breasts in 1 year. A clinical breast exam by your physician is recommended on an annual basis and results should be correlated with mammographic findings. Electronically signed and approved by: Jett Palacios DO
== END | disposition home or self-care (01) ==
LOC: RADBDWWP 09:52
PROVIDERS: ATTEND Obstetrics & Gynecology
DX: Z12.31 Encounter for screening mammogram for malignant neoplasm of breast (principal); M85.89 Other specified disorders of bone density and structure, multiple sites
CPT/HCPCS: 77063; 77067; 77080

== ENCOUNTER → 2024-03-25 | Outpatient (CLI) | payer MEDICARE, BC ==
--- NOTE | 2024-04-17 19:46 | MM ---
Reason for Exam: Screening (asymptomatic). Last mammogram was performed 2 year(s) and 0 month(s) ago. Patient History: Menarche at age 10. First Full-Term at age 21. Postmenopausal. Patient has history of breast feeding. 1989, Benign Excisional Biopsy on the left side. 12/12/2016, Benign Core Biopsy on the right side. 12/04/2015, Benign Core Biopsy on the left side. Mother had breast cancer, age 65. Risk Values: Britta 5 year model risk: 4.7%. NCI Lifetime model risk: 7.2%. Prior Study Comparison: 11/22/2016 Bilateral Screening Mammogram, [facility]. 12/05/2016 Right Diagnostic Mammogram, [facility]. 06/15/2017 Right Diagnostic Mammogram, [facility]. 12/27/2017 Bilateral Screening Mammogram, [facility]. 02/12/2019 Bilateral Screening Mammogram, [facility]. 02/25/2020 Bilateral Screening Mammogram, [facility]. 03/03/2021 Bilateral Screening Mammogram, [facility]. 03/23/2022 Bilateral MG 3D screening mammo w/cad, [facility]. Tissue Density: There are scattered areas of fibroglandular density. Findings: Analyzed By CAD. A microclip on either side from prior biopsies. There is no suspicious group of microcalcifications or new suspicious mass in either breast. Overall Assessment: Benign, BI-RAD 2 Management: Screening Mammogram of both breasts in 1 year. See note below in regards to the patient's increased 5 year Britta score. Patient should continue monthly self-breast exams. A clinical breast exam by your physician is recommended on an annual basis. This exam should not preclude additional follow-up of suspicious palpable abnormalities. Note on Britta scores and lifetime risk: 1. A Brtita score greater than 3% is considered moderate risk. If this is the case, consider specialist referral to assess eligibility for a risk reducing agent. 2. If overall lifetime risk for the development of breast cancer is 20% or higher, the patient may qualify for future screening with alternating mammogram and breast MRI. Electronically signed and approved by: Reese Santoyo M.D. Radiologist
== END | disposition home or self-care (01) ==
LOC: RADBDWWP 12:00
PROVIDERS: ATTEND Internal Medicine
DX: Z12.31 Encounter for screening mammogram for malignant neoplasm of breast (principal); M85.851 Other specified disorders of bone density and structure, right thigh; Z78.0 Asymptomatic menopausal state; Z80.3 Family history of malignant neoplasm of breast; R92.323 Mammographic fibroglandular density, bilateral breasts
CPT/HCPCS: 77063; 77067

== ENCOUNTER → 2024-10-25 | Outpatient (CLI) | payer MEDICARE, BC ==
--- NOTE | 2024-10-25 12:43 | BD ---
EXAMINATION TYPE: Axial Bone Density DATE OF EXAM: 10/25/2024 CLINICAL HISTORY: 79 years old Female. ICD-10 CODE: M85.851 OTH DISRD OF BONE DENSITY AND STRUCTURE, R , Additional History: Height: 60.7 in Weight: 127 lbs FRAX RISK QUESTIONS: Family History (Parent hip fracture): yes mother History of Fracture in Adulthood: lt knee fx age 70; lt wrist fx age 75 MEDICATIONS: Thyroid Medications: Which medication: Levothyroxine How Lon+ years EXAM MEASUREMENTS: Bone mineral densitometry was performed using the [employer] System. Bone mineral density as measured about the Lumbar spine is: ----- L1-L4(G/cm2): 1.269 T Score Values are as follows: ----- L1: -0.8 ----- L2: 0.8 ----- L3: 1.3 ----- L4: 1.4 ----- L1-L4: 0.7 Z Score Values are as follows: ----- L1: 1.4 ----- L2: 2.9 ----- L3: 3.4 ----- L4: 3.5 ----- L1-L4: 2.8 Bone mineral density has: Decreased -1.6% since study of: 03/23/2022 Bone mineral density about the R hip (g/cm2): 0.741 Bone mineral density about the L hip (g/cm2): 0.766 T Score values are as follows: -----R Neck: -2.1 -----L Neck: -1.8 -----R Total: -2.1 -----L Total: -1.9 Z Score values are as follows: -----R Neck: 0.3 -----L Neck: 0.6 -----R Total: 0.1 -----L Total: 0.3 Bone mineral density has: Decreased -4.3% since study of: 03/23/2022 FRAX%s: The graph provided illustrates a 22.9% chance for a major osteoporotic fx and a 6.7% chance f or the hips probability for fx in 10 years time. IMPRESSION: Osteopenia (T Score between -2.5 and -1). There is slightly increased risk of fracture and the patient may be considered for treatment. Re-Screen 2-5 years. NOTE: T-SCORE=SD OF THE YOUNG ADULT MEAN. [facility], , 10/25/2024 12:40 PM
== END | disposition home or self-care (01) ==
LOC: RADBDWWP 09:06
PROVIDERS: ATTEND Internal Medicine
DX: M85.89 Other specified disorders of bone density and structure, multiple sites (principal)
CPT/HCPCS: 77080

== ENCOUNTER → 2024-12-10 | Outpatient (CLI) | payer MEDICARE, BC ==
--- NOTE | 2024-12-10 12:54 | XR ---
EXAMINATION TYPE: XR foot complete LT DATE OF EXAM: 12/10/2024 12:37 PM COMPARISON: None. CLINICAL INDICATION: Female, 79 years old with history of M79.671 PAIN IN RIGHT FOOT, pain TECHNIQUE: Frontal, lateral, and oblique images of the left foot are obtained. FINDINGS: There is no acute fracture/dislocation evident in the left foot. The joint spaces in the left foot appear within normal limits. The overlying soft tissue appears unremarkable. IMPRESSION: There is no acute fracture or dislocation in the left foot. [facility], , 12/10/2024 12:52 PM
== END | disposition home or self-care (01) ==
LOC: RADXRMAIN 12:19
PROVIDERS: ATTEND Podiatrist Primary Podiatric Medicine
DX: M79.671 Pain in right foot (principal)

== ENCOUNTER → 2025-01-28 | Outpatient (CLI) | payer MEDICARE, BC ==
--- NOTE | 2025-01-28 12:46 | XR ---
EXAMINATION TYPE: XR shoulder complete RT DATE OF EXAM: 01/28/2025 12:11 PM COMPARISON: None. CLINICAL INDICATION: Female, 79 years old with history of M25.511 PAIN IN RIGHT SHOULDER, Pain TECHNIQUE: XR shoulder complete RT view(s) obtained. FINDINGS: The humeral head articulates with the glenoid. The acromio-clavicular junction is normal. No acute fractures or dislocations are evident. A follow up study can be performed 7-10 days from acute trauma for continued pain. MRI can be perfor med if soft tissue evaluation would be of benefit. IMPRESSION: 1. No acute osseous shoulder abnormality. [facility], , 01/28/2025 12:43 PM
== END | disposition home or self-care (01) ==
LOC: RADXRMAIN 11:47
DX: M25.511 Pain in right shoulder (principal)